=== PATIENT | male | born 1990 | race Caucasian/White ===

== ENCOUNTER 2023-12-01 13:02 | Inpatient (IN) ==
--- NOTE | 2023-12-01 13:06 | Emergency Department Note ---
Impression & Plan Depression with suicidal ideation, Tobacco use ED Provider Note NAME: PRATIK DOVER AGE: 33 SEX: M : 1990 ARRIVES VIA: Police Cruiser INFORMANT: Patient, police ED PROVIDER(S): Gamal Hyde MD CHIEF COMPLAINT: Suicidal ideation with plan. MEDICAL DECISION MAKING: Patient presents due to concern for suicidal ideation with plan. IV was established and blood work was obtained. Blood work shows a normal white count hemoglobin and platelet count. Kidney function is unremarkable BSG 167. TSH is low but free T4 normal. Salicylate Tylenol alcohol negative. Urinalysis and UDS are negative with exception of THC. Patient was evaluated by 3 S. and admitted for inpatient psychiatric treatment. Discussion w/ other healthcare providers: 3 S. refrigeration houseman ED case management Prior /Outside records reviewed: None Differential diagnosis: Mood disorder, infection, hypoglycemia, electrolyte abnormalities, dehydration, medication side effect among others were considered. Diagnostics, as interpreted by me: ECG: None Medical decision rules: Suicide risk severity score Imaging studies: None HPI: Patient presents due to concern for suicidal ideation and threatened to kill himself with a loaded rifle. The patient was brought in by local police. Patient states that he has a prior history of being seen in the outpatient setting for his mental wellness was not been seen in some time. Patient currently does not take any medications. His sleep is poor. His appetite has been good. The patient denies any HI or AVH. Patient does live at home but feels unwelcome and at home and states that he was involved in a verbal altercation with his mother this morning which may have precipitated some of these thoughts and actions. Patient does chew tobacco. He denies alcohol or drug use. PAST MEDICAL HISTORY: See Below PAST SURGICAL HISTORY: See Below SOCIAL HISTORY: See Below HOME MEDICATIONS: See Below ALLERGIES: See Below VITALS: See Below PHYSICAL EXAMINATION: GENERAL: NAD, non-toxic. Chewing tobacco. EYE EXAM: Normal conjunctiva. PERRL, no anisocoria and EOM's grossly intact w/o pain. OROPHARYNX: Moist mucus membranes, grossly normal dentition. NECK: Trachea midline, no stridor. Supple, no nuchal rigidity, no adenopathy, non-tender. No signs of meningismus. FROM of the neck with good chin to chest and neck extension. LUNGS: Clear to auscultation. Normal chest wall mechanics. HEART: NSR, no MRG. ABDOMEN: Abdomen soft, non-tender, no masses, no rebound or guarding. BACK: No CVA TTP. SKIN: No rashes and no bruising. UPPER EXTREMITIES: Upper extremities are grossly normal. LOWER EXTREMITIES: Grossly normal, no edema. NEURO EXAM: A&O x3, cranial nerves II-XII grossly intact, normal speech, moves all 4 extremities. Psych: Positive SI with plan, denies HI or AVH. Past Med/Surg History Problem List (Updated 12/01/23 @ 17:50 by Gamal Hyde MD) Tobacco use (Acute) Depression with suicidal ideation (Acute) Social History Smoking Status: Never smoker Tobacco Type: Smokeless Tobacco (Dip or Chew) Feels Safe at Home: No Gender Identity: Male Allergies Allergies Allergy/AdvReac Type Severity Reaction Status Date / Time NKA' Allergy Mild other Uncoded 04/18/11 12:03 Home Meds Home Medications Medication Instructions Recorded Confirmed Amoxicillin (Amoxil *) 500 mg PO TID ##30 04/18/11 Methylphenidate (Ritalin) 10 mg BT DAILY ##0 04/18/11 Results & Data (ED) Vital Signs Vital Signs - 24 hr 12/01/23 13:04 12/01/23 14:51 12/01/23 17:18 Temperature 36.7 C 36.6 C 36.6 C Temperature Source Oral Oral Oral Pulse Rate 117 H 75 Pulse Rate [Finger] 85 Respiratory Rate 16 16 20 Respiratory Effort / Characteristics Non-Labored Spontaneous Respiratory Depth Normal Respiratory Pattern Regular Blood Pressure 135/95 132/75 Blood Pressure [Left Arm] 132/91 Blood Pressure Mean 108 Blood Pressure Mean [Left Arm] 104 Blood Pressure Position Sitting Pulse Oximetry 97 98 98 Oxygen Delivery Method Room Air Room Air Room Air Sepsis Recent Fever Within 48 Hours No Sepsis New/Unexplained Change in Mental Status No Sepsis Action Taken by Nursing No Action Required Home Medications Current Medication List: was personally reviewed by me Laboratory Data Attestation: I reviewed the patient's lab results. 12/01/23 13:40 12/01/23 13:40 Lab Results 12/01/23 12/01/23 Range/Units 13:40 14:46 WBC 8.03 (4.8-10.8) K/ul RBC 5.01 (4.70-6.10) M/uL Hgb 16.0 (14.0-18.0) g/dl Hct 43.3 (42.0-52.0) % MCV 86.4 (80.0-100.0) fL MCH 31.9 (25.0-34.0) pg MCHC 37.0 H (32.0-36.0) g/dL RDW Std Deviation 38.4 (36.4-46.3) fL RDW Coeff of Bee 12.3 (11.5-14.5) % Plt Count 247 (130-400) K/uL MPV 9.7 (9.4-12.4) fL Immature Gran % (Auto) 0.4 % Neut % (Auto) 68.1 % Lymph % (Auto) 24.8 % [place] % (Auto) 6.0 % Eos % (Auto) 0.6 % Baso % (Auto) 0.1 % Neut # (Auto) 5.47 (1.40-6.50) K/uL Lymph # (Auto) 1.99 (1.20-3.40) K/uL [place] # (Auto) 0.48 (0.11-0.59) K/uL Eos # (Auto) 0.05 (0.00-0.50) K/uL Baso # (Auto) 0.01 (0.00-0.20) K/uL Immature Gran # (Auto) 0.03 (0.01-0.20) K/uL Sodium 138 (136-145) mmol/L Potassium 3.7 (3.5-5.1) mmol/L Chloride 106 (98-107) mmol/L Carbon Dioxide 26 (21-32) mmol/L Anion Gap 6 (3-11) BUN 14 (6-23) mg/dl Creatinine 1.08 (0.6-1.4) mg/dl Est Cr Clr Drug Dosing 132.3 ml/min Est GFR ( Amer) 104.0 ml/min Est GFR (Non-Af Amer) 89.7 ml/min BUN/Creatinine Ratio 13.0 (10-20) Glucose 167 H (70-99(Fasting)) mg/dl Calcium 9.7 (8.6-10.3) mg/dl Total Bilirubin 0.8 (0.2-1.0) mg/dl AST 22 (13-39) U/L ALT 28 (7-52) U/L Alkaline Phosphatase 98 (34-104) U/L Total Protein 7.3 (6.0-8.3) gm/dl Albumin 4.7 (3.4-5.0) gm/dl Globulin 2.6 (2.5-4.0) gm/dl Albumin/Globulin Ratio 1.8 (0.9-2) TSH 0.287 L (0.300-4.500) uIu/ml Free T4 0.94 (0.61-1.60) ng/dl Salicylates < 3.0 L (3.0-30) mg/dl Acetaminophen < 3 L (10-30) ug/ml Ethyl Alcohol mg/dL < 10.0 (<10.0) mg/dl SARS-CoV-2, RNA, NAAT NEGATIVE (NEGATIVE) Discharge Plan Visit Data Chief Complaint: Mental Health Evaluation ED Provider: Gamal Hyde Discharge Problem: Depression with suicidal ideation, Tobacco use Patient Disposition: Admitted As Inpatient Discharge Instructions Interventions: ED Discharge Assessment Last Done: 12/01/23 17:18
[2023-12-01 13:58] LABS: Basophils # (auto) 0.01 K/uL (0.00-0.20); Basophils % (auto) 0.1 %; Eosinophils # (auto) 0.05 K/uL (0.00-0.50); Eosinophils % (auto) 0.6 %; Hematocrit (blood only) 43.3 % (42.0-52.0); Immature Granulocytes # (auto) 0.03 K/uL (0.01-0.20); Immature Granulocytes % (auto) 0.4 %; Lymphocytes # (auto) 1.99 K/uL (1.20-3.40); Lymphocytes % (auto) 24.8 %; Mean Corpuscular Hemoglobin 31.9 pg (25.0-34.0); Mean Corpuscular Volume 86.4 fL (80.0-100.0); Mean Platelet Volume 9.7 fL (9.4-12.4); Monocytes # (auto) 0.48 K/uL (0.11-0.59); Neutrophils # (auto) 5.47 K/uL (1.40-6.50); Neutrophils % (auto) 68.1 %; Platelet Count 247 K/uL (130-400); RDW Coefficient of Variation 12.3 % (11.5-14.5); RDW Standard Deviation 38.4 fL (36.4-46.3); Red Blood Count 5.01 M/uL (4.70-6.10); White Blood Count 8.03 K/ul (4.8-10.8)
[2023-12-01 14:12] LABS: Albumin Globulin Ratio 1.8 (0.9-2); Albumin Level 4.7 gm/dl (3.4-5.0); Bilirubin,Total 0.8 mg/dl (0.2-1.0); Calcium 9.7 mg/dl (8.6-10.3); Creatinine Clr Calc Pharmacy 132.3 ml/min; Est GFR (Non-African American) 89.7 ml/min; Globulin 2.6 gm/dl (2.5-4.0); Potassium 3.7 mmol/L (3.5-5.1); Total Protein 7.3 gm/dl (6.0-8.3)
[2023-12-01 14:27] LABS: Thyroid Stimulating Hormone 0.287 uIu/ml (0.300-4.500)
[2023-12-01 14:57] LABS: Acetaminophen < 3 ug/ml (10-30); Salicylate < 3.0 mg/dl (3.0-30)
[2023-12-01 15:02] LABS: T4 Free Thyroxine 0.94 ng/dl (0.61-1.60)
[2023-12-01 16:37] LABS: Appearance Urine Clear (Clear); Bilirubin Urine Negative (Negative); Blood Urine Negative (Negative); Color Urine Yellow; Glucose Urine UA Negative (Negative); Ketones Urine Negative (Negative); Leukocyte Esterase Urine Negative (Negative); Nitrite Urine Negative (Negative); Protein Urine Negative (Negative); Specific Gravity Urine 1.012 (1.000-1.030); Urobilinogen Urine Negative (Negative); pH Urine 7.5 (4.5-7.5)
[2023-12-01 17:11] LABS: Amphetamines+Metham, Urine Neg (Neg); Barbiturates, Urine Neg (Neg); Benzodiazepine, Urine Neg (Neg); Cocaine, Urine Neg (Neg); Fentanyl, Urine Neg (Neg); MDMA (Ecstacy), Urine Neg (Neg); Marijuana, Urine Pos (Neg); Methadone, Urine Neg (Neg); Opiate, Urine Neg (Neg); Phencyclidine, Urine Neg (Neg)
[2023-12-01] MEDS ORDERED: MAGNESIUM HYDROXIDE SUSP 30 ML UDC PO PRN (17:27)
[2023-12-01] MEDS ORDERED: SODIUM CHLORIDE 0.65% NA SOLN 45 ML (OCEAN) PRN (17:27)
[2023-12-01] MEDS ORDERED: ACETAMINOPHEN 325 MG TAB PO PRN (17:27)
[2023-12-01] MEDS ORDERED: BISMUTH SUBSALICYLATE LIQD 236 ML PO PRN (17:27)
[2023-12-01] MEDS ORDERED: hydrOXYzine HCl 25 MG TAB PO PRN (17:27)
[2023-12-01] MEDS ORDERED: ALUMINUM/MAGNESIUM SUSP 30 ML UDC PO PRN (17:27)
[2023-12-02] MEDS: hydrOXYzine HCl 25 MG TAB PO PRN (00:04)
[2023-12-02] MEDS: NICOTINE 14 MG/24 HR PATCH TD SCH (08:56)
[2023-12-02] MEDS: NICOTINE POLACRILEX 2 MG GUM MT PRN (12:45)
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
[2023-12-05 15:42] LABS: Marijuana Quant, GCMS Urine 280 ng/mL (<5)
== END 2023-12-03 17:10 | disposition home or self-care (01) | DRG 885 ==
LOC: ED 13:02 → 3S 17:18